=== PATIENT | male | born 1950 | race Caucasian/White ===

== ENCOUNTER 2022-02-18 10:17 | Day surgery (SDC) | payer OTHER ==
[2022-02-17 11:57] LABS: BASOPHILS % (AUTO) 0.4 % (0-1); EOSINOPHILS # (AUTO) 0.1 X10'3 (0-0.9); EOSINOPHILS % (AUTO) 1.4 % (0-6); LYMPHOCYTES # (AUTO) 1.4 X10'3 (1.1-4.8); LYMPHOCYTES % (AUTO) 20.4 % (21-51); MEAN CORPUSCULAR HEMOGLOBIN 30.9 PG (27.0-31.0); MEAN CORPUSCULAR HGB CONC 33.8 g/dL (33.0-36.5); MEAN CORPUSCULAR VOLUME 91.6 FL (78-98); MEAN PLATELET VOLUME 9.3 FL (7.4-10.4); MONOCYTES # (AUTO) 0.7 X10'3 (0-0.9); MONOCYTES % (AUTO) 9.8 % (2-12); NEUTROPHILS # (AUTO) 4.8 X10'3 (1.8-7.7); PRE OP HEMATOCRIT 42.4 % (42.0-52.0); PRE OP HEMOGLOBIN 14.3 g/dL (14.0-17.9); PRE OP PLATELET COUNT 237 X10'3 (140-440); RED BLOOD COUNT 4.62 X10'6 (4.70-6.10); RED CELL DISTRIBUTION WIDTH 13.5 % (11.5-14.5)
[2022-02-17 12:05] LABS: PRE OP PROTIME 10.2 SECONDS (9.0-12.0)
[2022-02-17 12:07] LABS: ALBUMIN 4.1 G/DL (3.4-5.0); ALBUMIN/GLOBULIN RATIO 1.3 (1.1-1.5); ALKALINE PHOSPHATASE 61 IU/L (46-116); BLOOD UREA NITROGEN 21 MG/DL (7-18); BUN/CREATININE RATIO 27.6 (5.4-32.0); CALCIUM 8.9 MG/DL (8.5-10.1); CHLORIDE 103 MMOL/L (99-107); CREATININE 0.76 MG/DL (0.60-1.10); PRE OP ALT 8 U/L (30-65); PRE OP ANION GAP 1 (8-16); PRE OP AST 24 U/L (10-37); PRE OP BILIRUB, TOTAL 0.6 MG/DL (0.0-1.0); PRE OP GLUCOSE 96 MG/DL (70-104); PRE OP POTASSIUM 3.8 MMOL/L (3.4-5.1); PRE OP SODIUM 137 MMOL/L (135-145); TOTAL CARBON DIOXIDE 32.8 MMOL/L (24-32); TOTAL PROTEIN 7.3 G/DL (6.4-8.2); eGFR > 90 ML/MIN
[~2022-02-18] VITALS: Ht 179.1 cm; Wt 65.8 kg
[2022-02-18] VITALS (12 sets, daily range): BP systolic 121–158; BP diastolic 52–85
[~2022-02-18 10:17] MED LIST: CARB1TAB60 PO; ceFAZolin inj. 2,000 MG in dextrose 5%-water 100 ML IV ONE; famotidine 20mg tablet PO ONE; meperidine/PF 25mg/ml syringe IV PRN; morphine 2 MG/ML inj. syringe IV PRN; morphine 4 MG/ML inj SYRINge IV PRN; ondansetron/PF 4mg/2ml inj IV PRN; proCHLORperazine 10 MG/2 ml inj IV PRN; ringers solution, lacted 1,000 ML IV SCH
[2022-02-18] MEDS ORDERED: desflurane 240ml liquid inh. IH ONE (10:50)
[2022-02-18] MEDS ORDERED: dexamethasone sod phosphate 10mg/ml inj ONE (10:50)
[2022-02-18] MEDS ORDERED: propofol inj 20 ML IV ONE (10:55)
[2022-02-18] MEDS ORDERED: LIDOcaine 1%/PF 5ML 10 MG/ML VIAL ONE (10:55)
[2022-02-18] MEDS ORDERED: fentaNYL/PF 50MCG/1 ML 2ML syringe ONE (10:55)
[2022-02-18] MEDS ORDERED: midazolam 1 mg/ML 2ml injection ONE (10:55)
[2022-02-18] MEDS ORDERED: BUPIVAcaine/PF 5 mg/ml 10ml ONE (11:14)
[2022-02-18] MEDS ORDERED: ondansetron/PF 4mg/2ml inj ONE (11:47)
[2022-02-18] MEDS ORDERED: ketorolac trometh. 30mg/ml inj. ONE (11:53)
--- NOTE | 2022-02-18 12:05 | NUR ---
Received from OR via [facility] , accompanied by Anesthesiologist KEN and report given by Anesthesiolgist. PATIENT WITH 20G PIV IN LEFT UE RUNNING LR AT 100. RIGHT INGUINAL DRESSING IS CDI AT THIS TIME. DENIES PAIN. 10L MASK ON WITH 99% SATURATIONS. Addendum: 02/18/22 at 1212 by Alexandr Hurley RN, RN Amended: Links added.
[2022-02-18] MEDS ORDERED: HYDROcodone/acetaminophen 5mg/325mg tablet PO PRN (12:30)
--- NOTE | 2022-02-18 13:29 | NUR ---
REPORT GIVEN TO FIORELLA GIL IN PASS UNIT. ALL QUESTIONS ANSWERED. VSS. PATIENT AWAITS DC OR VOID. Addendum: 02/18/22 at 1330 by Alexandr Hurley RN, RN Amended: Links added.
--- NOTE | 2022-02-18 13:30 | NUR ---
REPORT RECEIVED FROM GETACHEW GIL. PT ATTACHED TO CARDIAC, BP AND PULSE OX MONITOR. PT IS AWAKE AND ALERT CONVERSING. PT HAS PARKINSON AND IS TREMULOUS. IV FLUIDS INFUSING. PT STATES HE NORMALLY HAS A PROSTATE ISSUE AND USUALLY ONLY URINATES SMALL AMOUNTS AT A TIME.. VITAL SIGNS ARE STABLE
--- NOTE | 2022-02-18 14:00 | NUR ---
PT WAS ABLE TO URINATE 300 CC OF YELLOW URINE. SON CALLED TO BEDSIDE, PT WAS DRESSED, DISCHARGE INSTRUCTIONS WERE GIVEN TO HIM AND SON
--- NOTE | 2022-02-18 14:25 | NUR ---
IV CATHETER WAS REMOVED INTACT, PRESSURE DRESSING APPLIED, COPY OF DISCHARGE INSTRUCTIONS GIVEN TO PTS SON, ALL BELONGINGS ABUNDIO. PT WAS TAKEN TO LOBBY TO PRIVATE CAR DRIVEN BY SON VIA WHEELCHAIR. DISCHARGED IN STABLE CONDITION
== END 2022-02-18 14:25 | disposition home or self-care (01) ==
LOC: PAS 10:17
PROVIDERS: ATTEND Surgery
DX: K40.90 Unilateral inguinal hernia, without obstruction or gangrene, not specified as recurrent (principal); G20 Parkinson's disease; Z79.01 Long term (current) use of anticoagulants; Z79.899 Other long term (current) drug therapy; Z98.890 Other specified postprocedural states
CPT/HCPCS: 36415; 49505; 71045; 80053; 82948; 85025; 85610; 85730; 87811; C1781; J0690; J1885; J2250; J2405; J2704; J3010; J3490; J7030; J7060; J7120; Z7506; Z7508; Z7512; A4215; A4618; A6449; A7000; J1100